=== PATIENT | male | born 1955 | race Caucasian/White ===

== ENCOUNTER → 2016-10-18 | Outpatient (CLI) | payer BC ==
--- NOTE | 2016-10-18 10:20 | KCIC ---
Chest PA and lateral Indication: Bronchitis and bilateral chest tightness. Time of exam 9:56 a.m. No prior studies are available for comparison. The heart is enlarged. There appears to be some parenchymal consolidation in the left lower lobe suggestive of pneumonia. Right lung is clear. No effusion is seen. There is no pneumothorax. Impression: Cardiomegaly and findings suggestive of left lower lobe pneumonia. Electronically signed by: Domingo Zazueta MD (Oct 18, 2016 10:18:23)
== END | disposition home or self-care (01) ==
LOC: KCIC 09:49
PROVIDERS: ATTEND Nurse Practitioner Family
DX: J40 Bronchitis, not specified as acute or chronic (principal)
CPT/HCPCS: 71020

== ENCOUNTER → 2016-11-02 | Outpatient (CLI) | payer BC ==
--- NOTE | 2016-11-02 11:13 | KCIC ---
PROCEDURE Two-view chest HISTORY Pneumonia COMPARISON 10/18/2016 FINDINGS Two views of the chest are submitted. Pericardial cardiac silhouette is again enlarged. There is no pneumothorax or dependent pleural fluid. Focal infiltrate is not identified. IMPRESSION There is again enlargement of the pericardial cardiac silhouette. Focal infiltrate is not identified. Electronically signed by: Zach Zafar MD (November 02, 2016 11:11:53)
== END | disposition home or self-care (01) ==
LOC: KCIC 10:36
PROVIDERS: ATTEND Nurse Practitioner Family
DX: J18.9 Pneumonia, unspecified organism (principal)
CPT/HCPCS: 71020

== ENCOUNTER → 2017-03-07 | Outpatient (CLI) | payer BC ==
--- NOTE | 2017-03-07 12:50 | KCIC ---
Indication: COPD. Time of exam 10:32 AM Comparison is made with prior study from 11/02/2016. FINDINGS: The heart size is normal. The lungs are clear. No pleural effusion or pneumothorax is identified. The pulmonary vascularity is normal. IMPRESSION: No acute abnormality detected. Electronically signed by: Domingo Zazueta MD (03/07/2017 12:47 PM) [id number]
== END | disposition home or self-care (01) ==
LOC: KCIC 10:23
PROVIDERS: ATTEND Nurse Practitioner Family
DX: J44.0 Chronic obstructive pulmonary disease with (acute) lower respiratory infection (principal); J20.9 Acute bronchitis, unspecified
CPT/HCPCS: 71020

== ENCOUNTER → 2017-07-10 | Outpatient (CLI) | payer BC | END | disposition home or self-care (01) | LOC: KCIC 12:07 | DX: J44.1 Chronic obstructive pulmonary disease with (acute) exacerbation (principal) | CPT/HCPCS: 71046 ==

== ENCOUNTER → 2017-08-25 | Outpatient (CLI) | payer BC | END | disposition home or self-care (01) | LOC: KCIC CT 13:58 | DX: I25.10 Atherosclerotic heart disease of native coronary artery without angina pectoris (principal); D72.89 Other specified disorders of white blood cells; Z87.891 Personal history of nicotine dependence | CPT/HCPCS: 71250 ==